=== PATIENT | female | born 1930 | race African-American/Black ===

== ENCOUNTER 2016-11-05 15:18 | Inpatient (IN) | payer MEDICARE, BC ==
[~2016-11-05] VITALS: Ht 170.2 cm; Wt 50.5 kg
[~2016-11-05 15:18] MED LIST: ALPHAGAN EACHEYE; ASPI-1035 PO; BIMA2.5D4 EACHEYE; CLOP75TA33 PO; LORA0.5T2 PO; NIFE30TA8 PO; PREMARIN VA; SIMV20TA2 PO
[2016-11-05 17:20] LABS: BASOPHILS % 0.6 % (0.0-2.0); DIFFERENTIAL COMMENT 0; EOSINOPHILS % 0.1 % (0.0-5.0); HEMATOCRIT. 30.2 % (36.0-48.0); HEMOGLOBIN. 9.6 g/dL (12.0-16.0); LYMPHOCYTES % 12.4 % (20.0-50.0); MEAN CORPUSCULAR HEMOGLOBIN 25.3 pg (28.0-32.0); MEAN CORPUSCULAR HGB CONC 31.8 g/dL (31.0-37.0); MEAN CORPUSCULAR VOLUME 79.5 fL (81.0-99.0); MEAN PLATELET VOLUME 7.4 fl (7.4-10.4); MONOCYTES % 5.8 % (2.0-8.0); NEUTROPHILS % 81.1 % (40.0-76.0); PLATELET 228 x1000/uL (130-400); RED CELL DISTRIBUTION WIDTH 19.7 % (11.6-14.6); WHITE BLOOD COUNT 9.8 x1000/uL (4.5-11.0)
[2016-11-05 17:24] LABS: CHLORIDE 108 mEq/L (98-107); INDEX HEMOLYSI 3 (1-3); INDEX ICTERIC 1 (1-4); INDEX LIPEMIC 1 (1-3)
[2016-11-05 17:28] LABS: ALBUMIN 3.1 g/dL (3.4-5.0); ANION GAP 19; CALCIUM 8.7 mg/dL (8.5-10.1); CARBON DIOXIDE 23 mEq/L (21-32); UREA NITROGEN BLOOD 21 mg/dL (7-21)
[2016-11-05 17:33] LABS: ALANINE AMINOTRANSFERASE 18 IU/L (13-61); eGFR > 60 mL/min (>60)
[2016-11-05 17:48] LABS: CLARITY URINE CLEAR (CLEAR); COLOR URINE DARK YELLOW (YELLOW); GLUCOSE URINE NEGATIVE (NEGATIVE); KETONES URINE TRACE (NEGATIVE); LEUKOCYTE ESTERASE URINE NEGATIVE (NEGATIVE); NITRITE URINE NEGATIVE (NEGATIVE); OCCULT BLOOD URINE NEGATIVE (NEGATIVE); PH URINE 5.5 (4.5-8.0); PROTEIN URINE 3+ (NEGATIVE)
[2016-11-05 18:15] LABS: BACTERIA URINE 2+; RBC URINE 0-2 /hpf (0-2); SQUAMOUS EPITHELIAL CELL URINE FEW /lpf (RARE/1+); WBC URINE 0-2 /hpf (0-2)
[2016-11-06 01:56] VITALS: BP 122/88
[2016-11-06] MEDS ORDERED: IPRATROPIUM/ALBUTEROL 0.5-3(2.5)MG/3ML NEB INH PRN (02:30)
[2016-11-06] MEDS ORDERED: ONDANSETRON HCL 4MG/2ML VIAL IV PRN (02:30)
[2016-11-06] MEDS ORDERED: ACETAMINOPHEN 325MG TABLET PO PRN (02:30)
[2016-11-06 04:00] VITALS: BP 122/66
[2016-11-06] MEDS: DEXT 5%/0.45% NACL 1000ML 1,000 ML IV SCH ×2 (04:25→15:41)
[2016-11-06] MEDS ORDERED: CEFTRIAXONE 1 G PREMIX 50 ML IV SCH (05:00)
[2016-11-06 06:30] LABS: CREATINE KINASE MB FRACTION 1.2 ng/mL (0.5-3.6); THYROID STIMULATING HORMONE 1.5 uIU/mL (0.36-3.74)
[2016-11-06 06:33] LABS: TROPONIN I 0.46 ng/mL (0.00-0.04)
[2016-11-06 07:38] VITALS: BP 107/80
[2016-11-06] MEDS: NIFEDIPINE XL 30MG TAB PO SCH (08:40)
[2016-11-06] MEDS: ASPIRIN 81MG EC TABLET PO SCH (08:44)
[2016-11-06] MEDS: CLOPIDOGREL 75MG TABLET PO SCH (08:44)
[2016-11-06] MEDS ORDERED: ENOXAPARIN 40MG/0.4ML SYR SUBCUT SCH (09:00)
[2016-11-06] MEDS ORDERED: SODIUM CHLORIDE 0.9% 10ML VIAL ONE (09:06)
[2016-11-06] MEDS ORDERED: IOHEXOL-350 100 ML BOTTLE ONE (09:06)
[2016-11-06 12:00] VITALS: BP 103/66
[2016-11-06 16:00] VITALS: BP 112/83
[2016-11-06 17:00] LABS: BG BASE EXCESS -2.3 mmol/L (-2.0-2.0); BG CARBOXYHEMOGLOBIN 0.1 % (0.5-1.5); BG DEOXYHEMOGLOBIN 0.9 % (0.0-5.0); BG FRACTION INSPIRED OXYGEN 32; BG HCO3 ACT 19.4 mmol/L (22.0-26.0); BG OXYGEN SATURATION 99.1 % (92.0-98.5); BG PCO2 23.5 mmHg (35.0-45.0); BG PH 7.534 (7.350-7.450); BG PO2 167.2 mmHg (75.0-100.0); BG SAMPLE SITE RIGHT RADIAL; BG VENT MODE NASAL CANNULA
[2016-11-06 18:17] LABS: INDEX HEMOLYSI 1 (1-3); INDEX ICTERIC 1 (1-4); INDEX LIPEMIC 1 (1-3); IRON 18 ug/dL (50-175); TOTAL IRON BINDING CAPACITY 157 ug/dL (250-450)
[2016-11-06] MEDS: ENOXAPARIN 60MG/0.6ML SYR SUBCUT SCH (18:45)
[2016-11-06 20:00] VITALS: BP 131/83
[2016-11-06] MEDS: BUDESONIDE 0.5MG/2ML NEB HHN SCH (21:04)
[2016-11-06] MEDS: IPRATROPIUM/ALBUTEROL 0.5-3(2.5)MG/3ML NEB HHN SCH (21:04)
[2016-11-06] MEDS: METOPROLOL TARTRATE 25MG TABLET PO SCH (21:49)
[2016-11-07] VITALS (7 sets, daily range): BP systolic 98–126; BP diastolic 62–98
[2016-11-07] MEDS: IPRATROPIUM/ALBUTEROL 0.5-3(2.5)MG/3ML NEB HHN SCH ×4 (02:38→20:16)
[2016-11-07] MEDS: ENOXAPARIN 60MG/0.6ML SYR SUBCUT SCH ×2 (06:12→18:44)
[2016-11-07 07:14] LABS: ANION GAP 13; CALCIUM 7.2 mg/dL (8.5-10.1); CARBON DIOXIDE 25 mEq/L (21-32); CHLORIDE 109 mEq/L (98-107); INDEX HEMOLYSI 1 (1-3); INDEX ICTERIC 1 (1-4); INDEX LIPEMIC 1 (1-3); UREA NITROGEN BLOOD 10 mg/dL (7-21); eGFR > 60 mL/min (>60)
[2016-11-07] MEDS: ASPIRIN 81MG EC TABLET PO SCH (08:30)
[2016-11-07] MEDS: CLOPIDOGREL 75MG TABLET PO SCH (08:30)
[2016-11-07] MEDS: METOPROLOL TARTRATE 25MG TABLET PO SCH (08:30)
[2016-11-07] MEDS: NIFEDIPINE XL 30MG TAB PO SCH (08:31)
[2016-11-07] MEDS: DEXT 5%/0.45% NACL 1000ML 1,000 ML IV SCH (08:31)
[2016-11-07] MEDS: BUDESONIDE 0.5MG/2ML NEB HHN SCH ×2 (09:10→20:16)
[2016-11-07 09:36] LABS: BASOPHILS % 0.4 % (0.0-2.0); DIFFERENTIAL COMMENT 0; EOSINOPHILS % 0.6 % (0.0-5.0); HEMATOCRIT. 27.7 % (36.0-48.0); HEMOGLOBIN. 8.8 g/dL (12.0-16.0); LYMPHOCYTES % 15.7 % (20.0-50.0); MEAN CORPUSCULAR HGB CONC 31.7 g/dL (31.0-37.0); MEAN CORPUSCULAR VOLUME 78.9 fL (81.0-99.0); MEAN PLATELET VOLUME 7.7 fl (7.4-10.4); MONOCYTES % 8.1 % (2.0-8.0); NEUTROPHILS % 75.2 % (40.0-76.0); PLATELET 282 x1000/uL (130-400); RED BLOOD CELL COUNT 3.52 mill/uL (4.2-5.4); RED CELL DISTRIBUTION WIDTH 19.5 % (11.6-14.6); WHITE BLOOD COUNT 8.2 x1000/uL (4.5-11.0)
[2016-11-07] MEDS ORDERED: POTASSIUM CHLORIDE INJ 40 MEQ in DEXT 5% WATER 250 ML IV ONE (11:00)
[2016-11-07] MEDS: PANTOPRAZOLE SODIUM 40 MG/VIAL IV SCH (11:05)
[2016-11-07] MEDS: DOCUSATE SODIUM 250MG CAPSULE PO SCH ×2 (12:05→17:31)
[2016-11-07] MEDS: DILTIAZEM HCL 60MG TABLET PO SCH ×2 (14:00→22:00)
[2016-11-07 15:50] LABS: MAGNESIUM 1.6 mg/dL (1.8-2.4)
[2016-11-07] MEDS ORDERED: CEFTRIAXONE 1 G PREMIX 50 ML IV SCH (16:00)
[2016-11-07] MEDS ORDERED: MAGNESIUM 2 G PREMIX 50 ML IV NR (16:00)
[2016-11-07] MEDS: CEFTRIAXONE 1 G PREMIX 50 ML IV SCH (16:42)
[2016-11-08] VITALS (16 sets, daily range): BP systolic 101–132; BP diastolic 53–88
[2016-11-08] MEDS: IPRATROPIUM/ALBUTEROL 0.5-3(2.5)MG/3ML NEB HHN SCH ×6 (02:10→19:59)
[2016-11-08] MEDS: DEXT 5%/0.45% NACL 1000ML 1,000 ML IV SCH ×2 (03:46→17:08)
[2016-11-08] MEDS: DILTIAZEM HCL 60MG TABLET PO SCH ×4 (05:25→23:24)
[2016-11-08 07:04] LABS: BASOPHILS % 0.6 % (0.0-2.0); DIFFERENTIAL COMMENT 0; EOSINOPHILS % 0.6 % (0.0-5.0); HEMATOCRIT. 26.5 % (36.0-48.0); HEMOGLOBIN. 8.5 g/dL (12.0-16.0); LYMPHOCYTES % 15.3 % (20.0-50.0); MEAN CORPUSCULAR HEMOGLOBIN 24.9 pg (28.0-32.0); MEAN CORPUSCULAR HGB CONC 31.9 g/dL (31.0-37.0); MEAN PLATELET VOLUME 7.5 fl (7.4-10.4); NEUTROPHILS % 73.5 % (40.0-76.0); PLATELET 306 x1000/uL (130-400); RED CELL DISTRIBUTION WIDTH 19.5 % (11.6-14.6); WHITE BLOOD COUNT 7.1 x1000/uL (4.5-11.0)
[2016-11-08 07:19] LABS: INR 1.1; PROTHROMBIN TIME 11.4 sec
[2016-11-08 07:31] LABS: ANION GAP 13; CALCIUM 7.2 mg/dL (8.5-10.1); CARBON DIOXIDE 26 mEq/L (21-32); CHLORIDE 105 mEq/L (98-107); INDEX HEMOLYSI 1 (1-3); INDEX ICTERIC 1 (1-4); INDEX LIPEMIC 1 (1-3); UREA NITROGEN BLOOD 6 mg/dL (7-21); eGFR > 60 mL/min (>60)
[2016-11-08] MEDS: ASPIRIN 81MG EC TABLET PO SCH ×2 (08:55→12:25)
[2016-11-08] MEDS: CLOPIDOGREL 75MG TABLET PO SCH ×2 (08:55→12:25)
[2016-11-08] MEDS: PANTOPRAZOLE SODIUM 40 MG/VIAL IV SCH (08:55)
[2016-11-08] MEDS: DOCUSATE SODIUM 250MG CAPSULE PO SCH ×3 (08:55→16:55)
[2016-11-08] MEDS: BUDESONIDE 0.5MG/2ML NEB HHN SCH ×2 (09:40→19:49)
[2016-11-08] MEDS ORDERED: IOHEXOL-300 50 ML BOTTLE IV ONE (11:00)
[2016-11-08] MEDS ORDERED: IOHEXOL-300 100 ML BOTTLE ONE (11:00)
[2016-11-08] MEDS ORDERED: SODIUM CHLORIDE 0.9% 10ML VIAL ONE (11:00)
[2016-11-08 13:18] LABS: CANCER ANTIGEN 125 43.6 U/mL (0.0-38.1)
[2016-11-08] MEDS: CEFTRIAXONE 1 G PREMIX 50 ML IV SCH (16:55)
[2016-11-08] MEDS ORDERED: DILTIAZEM HCL 60MG TABLET PO NR (18:27)
[2016-11-09] VITALS (8 sets, daily range): BP systolic 97–110; BP diastolic 61–82
[2016-11-09] MEDS: IPRATROPIUM/ALBUTEROL 0.5-3(2.5)MG/3ML NEB HHN SCH ×5 (00:47→21:01)
[2016-11-09] MEDS: DILTIAZEM HCL 60MG TABLET PO SCH ×3 (05:08→17:13)
[2016-11-09 06:49] LABS: BASOPHILS % 0.4 % (0.0-2.0); DIFFERENTIAL COMMENT 0; EOSINOPHILS % 0.8 % (0.0-5.0); HEMATOCRIT. 24.2 % (36.0-48.0); LYMPHOCYTES % 13.4 % (20.0-50.0); MEAN CORPUSCULAR HEMOGLOBIN 25.6 pg (28.0-32.0); MEAN CORPUSCULAR HGB CONC 32.9 g/dL (31.0-37.0); MEAN CORPUSCULAR VOLUME 77.8 fL (81.0-99.0); MEAN PLATELET VOLUME 7.3 fl (7.4-10.4); MONOCYTES % 9.9 % (2.0-8.0); NEUTROPHILS % 75.5 % (40.0-76.0); PLATELET 287 x1000/uL (130-400); RED BLOOD CELL COUNT 3.11 mill/uL (4.2-5.4); RED CELL DISTRIBUTION WIDTH 19.2 % (11.6-14.6); WHITE BLOOD COUNT 7.2 x1000/uL (4.5-11.0)
[2016-11-09 07:48] LABS: ANION GAP 12; CALCIUM 7.1 mg/dL (8.5-10.1); CARBON DIOXIDE 26 mEq/L (21-32); CHLORIDE 105 mEq/L (98-107); INDEX HEMOLYSI 1 (1-3); INDEX ICTERIC 1 (1-4); INDEX LIPEMIC 1 (1-3); MAGNESIUM 1.8 mg/dL (1.8-2.4); UREA NITROGEN BLOOD 6 mg/dL (7-21); eGFR > 60 mL/min (>60)
[2016-11-09] MEDS: BUDESONIDE 0.5MG/2ML NEB HHN SCH ×2 (08:26→21:01)
[2016-11-09] MEDS: DEXT 5%/0.45% NACL 1000ML 1,000 ML IV SCH (09:04)
[2016-11-09] MEDS: ASPIRIN 81MG EC TABLET PO SCH (09:04)
[2016-11-09] MEDS: PANTOPRAZOLE SODIUM 40 MG/VIAL IV SCH (09:04)
[2016-11-09] MEDS: DOCUSATE SODIUM 250MG CAPSULE PO SCH ×2 (09:04→16:05)
[2016-11-09] MEDS: CLOPIDOGREL 75MG TABLET PO SCH (09:06)
[2016-11-09] MEDS ORDERED: POTASSIUM CHLORIDE 20MEQ TABLET SR PO NR (11:00)
[2016-11-09] MEDS: CEFTRIAXONE 1 G PREMIX 50 ML IV SCH (16:05)
== END 2016-11-09 21:40 | DRG 252 ==
LOC: ER 17:17 → 8WST 22:48
PROVIDERS: ADMIT Internal Medicine; ATTEND Internal Medicine
PROC: 06H03DZ Insertion of Intraluminal Device into Inferior Vena Cava, Percutaneous Approach (ICD-10-PCS; principal; 2016-11-08)
DX: I82.412 Acute embolism and thrombosis of left femoral vein (principal); I26.99 Other pulmonary embolism without acute cor pulmonale; J96.00 Acute respiratory failure, unspecified whether with hypoxia or hypercapnia; C78.7 Secondary malignant neoplasm of liver and intrahepatic bile duct; E87.0 Hyperosmolality and hypernatremia; I42.9 Cardiomyopathy, unspecified; J98.11 Atelectasis; R64 Cachexia; I82.431 Acute embolism and thrombosis of right popliteal vein; D50.9 Iron deficiency anemia, unspecified; D63.8 Anemia in other chronic diseases classified elsewhere; E78.5 Hyperlipidemia, unspecified; I11.0 Hypertensive heart disease with heart failure; R16.0 Hepatomegaly, not elsewhere classified; R79.89 Other specified abnormal findings of blood chemistry; H40.9 Unspecified glaucoma; I48.2 Chronic atrial fibrillation; I73.9 Peripheral vascular disease, unspecified; J45.909 Unspecified asthma, uncomplicated; K59.00 Constipation, unspecified; M19.90 Unspecified osteoarthritis, unspecified site; K80.20 Calculus of gallbladder without cholecystitis without obstruction; N28.1 Cyst of kidney, acquired; Z85.038 Personal history of other malignant neoplasm of large intestine; Z86.718 Personal history of other venous thrombosis and embolism; Z90.49 Acquired absence of other specified parts of digestive tract
CPT/HCPCS: 36415; 36600; 37191; 71010; 71275; 76700; 78582; 80048; 80053; 81001; 82105; 82375; 82378; 82550; 82553; 82728; 82805; 83540; 83550; 83735; 84443; 84484; 85025; 85610; 85730; 86301; 86304; 87086; 93005; 93306; 93970; 94640; 94664; 99285; A4216; A9558; C1769; C1880; C9113; J0696; J1650; J3475; J3480; J3490; J7030; J7060; J7620; J7626; Q9967